=== PATIENT | female | born 1990 | race Caucasian/White ===

== ENCOUNTER 2017-09-10 10:52 | Emergency (ER) | payer BC, OTHER ==
[~2017-09-10] VITALS: Ht 167.6 cm; Wt 108.5 kg
[~2017-09-10 10:52] MED LIST: PRENTAB26 PO
[2017-09-10 10:55] VITALS: TEMP 37; Ht 167.6 cm; Wt 108.5 kg
[2017-09-10] MEDS ORDERED: OFLO0.3D4 OTL (11:02)
[2017-09-10] MEDS ORDERED: AMOX500C3 PO (11:02)
[2017-09-10] MEDS ORDERED: CEFAZOLIN SOD 1000MG/7.5 ML IV PUSH IV STA (11:03)
[2017-09-10] MEDS ORDERED: KETOROLAC TROMETHAMINE 30 MG/ML VIAL IV STA (11:13)
[2017-09-10 11:28] LABS: BASO % 0.2 %; BASO ABS # 0.03 K/uL (0-0.2); EOS % 0.2 %; EOS ABS # 0.03 K/uL (0-0.5); HEMATOCRIT 41.9 % (37-47); HEMOGLOBIN 13.5 g/dL (12.0-16.0); IG# 0.05 K/uL (0.00-0.02); LYMPH % 14.8 %; LYMPH ABS # 2.17 K/uL (1.2-3.4); MEAN CELL VOLUME 86.9 fL (80-100); MEAN CORPUSCULAR HGB CONC 32.2 g/dl (32-36); MONO % 7.6 %; MONO ABS # 1.11 K/uL (0.11-0.59); NEUT % 76.9 %; NEUT ABS # 11.27 K/uL (1.4-6.5); PLATELET COUNT 406 K/uL (130-400); RED CELL DISTRIBUTION WIDTH CV 13.6 % (11.5-14.5); RED CELL DISTRIBUTION WIDTH SD 43.1 fL (36.4-46.3); WHITE BLOOD COUNT 14.66 K/uL (4.8-10.8)
[2017-09-10] MEDS ORDERED: NEOM1SUS21 OTL (11:40)
[2017-09-10] MEDS ORDERED: AMOX875T PO (11:40)
[2017-09-10 11:45] LABS: CALCIUM 8.7 mg/dl (8.5-10.1); CREATININE 0.7 mg/dl (0.60-1.20); POTASSIUM 3.9 mmol/L (3.5-5.1)
--- NOTE | 2017-09-10 12:01 | EMERGENCY ROOM VISIT NOTE ---
History First contact with patient: 10:58 Chief Complaint: EAR PAIN Stated Complaint: EAR INFECTION History of Present Illness The patient is a 27 year old female who presents to the Emergency Room with complaints of persistent left ear infection with now swelling of the left side of her face. The patient states that she was seen by [facility] urgent care on Tuesday for a left ear infection. She was placed on amoxicillin thousand milligrams twice a day and ofloxacin drops 10 drops twice a day into the left ear. The patient states that it is not getting any better. She states now she has swelling in front of the left ear extending to her face. The patient denies any fever or any other upper respiratory symptoms of cough, sore throat, head congestion. The patient does admit to history of recurrent otitis media as a child. Review of Systems 10 system review was performed and was negative unless stated otherwise history of present illness. Past Medical/Surgical History Recurrent otitis media Social History Smoking Status: Never Smoker Smokeless Tobacco Use: No Alcohol Use: occasionally Drug Use: none Marital Status: single Housing Status: lives with significant other Current/Historical Medications Scheduled Amoxicillin (Amoxil), 1,000 MG PO BID Amoxicillin & Pot Clavulanate (Augmentin 875-125 mg), 1 TAB PO BID Gliqwxjt-Vrtbfvipj-Ht Otic (Cortisporin Otic), 4 DROPS OTL TID Ofloxacin (Otic) (Floxin Otic), 10 DROPS OTL BID Physical Exam Vital Signs Date Time Temp Pulse Resp B/P (MAP) Pulse Ox O2 Delivery O2 Flow Rate FiO2 09/10/17 10:55 37.0 90 18 123/84 98 Room Air Physical Exam PHYSICAL EXAM: Vital Signs were reviewed: Temperature 37.0, blood pressure 123/ 84, pulse 90, respiratory rate 18 reviewed Nurse's notes and agree. Oxygen saturation is 98 % on room air which is normal . GENERAL: An 7-year-old female appears in no acute distress. MENTAL STATUS: Alert, oriented, coherent. EARS: Right canal clear. TM with good light reflex. Left tragus and auricle tender to palpation with edema noted. Canal with edema and drainage noted. TM with purulent fluid level noted. No erythema of the TM noted. No perforation noted. The patient also has left preauricular lymphadenopathy but no associated erythema. NOSE: Nasal mucosa with moderate erythema engorgement. PHARYNX: No erythema, no edema noted. No exudate noted. Airway is adequate. NECK : Supple, non-tender. No lymphadenopathy noted. LUNGS: Clear to auscultation without wheezes rales or rhonchi. CARDIAC: Regular rate and rhythm without murmur. SKIN: No rashes noted. Medical Decision & Procedures Laboratory Results 09/10/17 11:20 Red Blood Count 4.82, Mean Corpuscular Volume 86.9, Mean Corpuscular Hemoglobin 28.0, Mean Corpuscular Hemoglobin Concent 32.2, Mean Platelet Volume 9.0, Neutrophils (%) (Auto) 76.9, Lymphocytes (%) (Auto) 14.8, Monocytes (%) (Auto) 7.6, Eosinophils (%) (Auto) 0.2, Basophils (%) (Auto) 0.2, Neutrophils # (Auto) 11.27, Lymphocytes # (Auto) 2.17, Monocytes # (Auto) 1.11, Eosinophils # (Auto) 0.03, Basophils # (Auto) 0.03 09/10/17 11:20 Test 09/10/17 11:20 White Blood Count 14.66 K/uL (4.8-10.8) Red Blood Count 4.82 M/uL (4.2-5.4) Hemoglobin 13.5 g/dL (12.0-16.0) Hematocrit 41.9 % (37-47) Mean Corpuscular Volume 86.9 fL (80-100) Mean Corpuscular Hemoglobin 28.0 pg (25-34) Mean Corpuscular Hemoglobin Concent 32.2 g/dl (32-36) Platelet Count 406 K/uL (130-400) Mean Platelet Volume 9.0 fL (7.4-10.4) Neutrophils (%) (Auto) 76.9 % Lymphocytes (%) (Auto) 14.8 % Monocytes (%) (Auto) 7.6 % Eosinophils (%) (Auto) 0.2 % Basophils (%) (Auto) 0.2 % Neutrophils # (Auto) 11.27 K/uL (1.4-6.5) Lymphocytes # (Auto) 2.17 K/uL (1.2-3.4) Monocytes # (Auto) 1.11 K/uL (0.11-0.59) Eosinophils # (Auto) 0.03 K/uL (0-0.5) Basophils # (Auto) 0.03 K/uL (0-0.2) RDW Standard Deviation 43.1 fL (36.4-46.3) RDW Coefficient of Variation 13.6 % (11.5-14.5) Immature Granulocyte % (Auto) 0.3 % Immature Granulocyte # (Auto) 0.05 K/uL (0.00-0.02) Anion Gap 6.0 mmol/L (3-11) Est Creatinine Clear Calc Drug Dose 149.1 ml/min Estimated GFR () 136.7 Estimated GFR (Non- 117.9 BUN/Creatinine Ratio 13.1 (10-20) Calcium Level 8.7 mg/dl (8.5-10.1) Medications Administered Medications (Trade) Dose Ordered Sig/Miguel Route Start Time Stop Time Status Last Admin Dose Admin Cefazolin Sodium (Cefazolin 1000mg Iv Push) 1,000 mg NOW STAT IV 09/10/17 11:03 09/10/17 11:06 DC 09/10/17 11:22 1,000 MG Ketorolac Tromethamine (Toradol Inj) 30 mg NOW STAT IV 09/10/17 11:13 09/10/17 11:14 DC 09/10/17 11:22 30 MG ED Course The patient was evaluated. IV access was obtained. CBC and differential and renal profile was ordered. The patient was given Ancef 1 g IV. She was also given Toradol 30 mg IV for pain and inflammation. The patient's labs are reviewed. The patient's white count was elevated at 14,000 otherwise labs are unremarkable. The patient was reevaluated. I discussed with the patient that we will be changing her antibiotic treatment and she is in agreement with treatment plan. The patient was discharged home in stable condition. Medical Decision Differential diagnosis include fungal ear infection, cellulitis, otitis media, otitis externa [place] Drug Monitoring Program Search Results: patient reviewed within database Medication Reconcilliation Current Medication List: was personally reviewed by me Blood Pressure Screening Patient's blood pressure: Normal blood pressure Impression Primary Impression: Otitis externa of left ear Additional Impression: Otitis media Departure Information Dispostion Home / Self-Care Condition GOOD Prescriptions Tokrnirg-Yunydvyde-Aq Otic (CORTISPORIN OTIC) 1 Shima Shima 4 DROPS OTL TID for 10 Days, #1 BTL Prov: Maurizio, Radha M., PA-C 09/10/17 Amoxicillin & Pot Clavulanate (Augmentin 875-125 mg) 1 Tab Tab 1 TAB PO BID for 10 Days, #20 TAB Prov: Radha Steevn PA-C 09/10/17 Forms HOME CARE DOCUMENTATION FORM, IMPORTANT VISIT INFORMATION, WORK / SCHOOL INSTRUCTIONS Patient Instructions My [facility] Additional Instructions Keep the ear as dry as possible. Also recommend ocwq-zui-ohnaane nasal decongestant such as Sudafed for 5 days. Keep head elevated when you sleep. Ibuprofen 600 mg every 6 hours with food for pain. Discontinue the amoxicillin and ofloxacin drops. Take Augmentin twice daily as prescribed. Also use the Cortisporin otic drops 4 drops into the left ear 3 times a day for 10 days. If you notice any reddening of the skin of the left side of the face return the ER immediately for further IV antibiotic treatment. If symptoms are not improving in 1-2 days also return to the ER for recheck. Otherwise if symptoms continue to improve follow-up with your family doctor in 1 week for reevaluation. Problem Qualifiers Primary Impression: Otitis externa of left ear Otitis externa type: diffuse Chronicity: acute Qualified Codes: H60.312 - Diffuse otitis externa, left ear Additional Impression: Otitis media Otitis media type: suppurative Chronicity: acute Laterality: left Recurrence: not specified as recurrent Spontaneous tympanic membrane rupture: without spontaneous rupture Qualified Codes: H66.002 - Acute suppurative otitis media without spontaneous rupture of ear drum, left ear
[2017-09-10 12:14] VITALS: BP 123/76; PULSE 104; O2SAT 96
== END 2017-09-10 12:19 | disposition home or self-care (01) ==
LOC: C.EDB 10:53 → C.EDD 12:19
DX: H60.312 Diffuse otitis externa, left ear (principal); H66.002 Acute suppurative otitis media without spontaneous rupture of ear drum, left ear; Z86.69 Personal history of other diseases of the nervous system and sense organs